=== PATIENT | female | born 1985 | race Caucasian/White ===

== ENCOUNTER 2021-07-16 21:26 | Outpatient (CLI) | payer SELFPAY ==
[2021-07-16 21:59] VITALS: BP 135/87
--- NOTE | 2021-07-17 07:53 | Ultrasound Report ---
ULTRASOUND OBSTETRIC COMPLETE INDICATION / CLINICAL INFORMATION: EFW, AUGUSTINE, PLACENTA. Clinical Gestational Age (GA) in weeks, days: 23 weeks 1 day TECHNIQUE: Transabdominal. COMPARISON: None available. FINDINGS: NUMBER: Single PRESENTATION: breech PLACENTA: posterofundal and free of the os. No evidence of placental abruption. MATERNAL ADNEXA: No significant abnormality. AMNIOTIC FLUID VOLUME: normal AMNIOTIC FLUID INDEX (AUGUSTINE) in cm (if measured): 11.4 ANATOMY: Examination is not tailored to evaluate detailed anatomy. MEASUREMENTS: - Biparietal Diameter = 5.0 cm = 21 weeks 1 - Head Circumference = 19.2 cm = 21 weeks 3 day - Abdominal Circumference = 17.5 cm = 22 weeks 3 days - Femur Length = 3.6 cm = 21 weeks 2 days - Estimated Weight (in grams, if calculated): 451 - Heart Rate (beats per minute): 149 ADDITIONAL FINDINGS: None. PERCENTILE ESTIMATED WEIGHT (if calculated): Not calculated AVERAGE ULTRASOUND AGE (AUA) in weeks, days = 21 weeks 4 days IMPRESSION: 1. Single intrauterine with AUA of 21 weeks 4 days, as detailed above. 2. No significant sonographic abnormality. Signer Name: Trell Gaspar MD Signed: 07/16/2021 11:43 PM Workstation Name: [id number]
== END 2021-07-16 23:00 | disposition still patient (30) ==
LOC: TRG 21:26 → APU 21:38 → TRG 23:00
PROVIDERS: ATTEND Obstetrics & Gynecology Gynecology
DX: O09.893 Supervision of other high risk pregnancies, third trimester (principal); Z3A.31 31 weeks gestation of pregnancy
CPT/HCPCS: 59025; 76816; 82962

== ENCOUNTER 2021-07-16 23:43 | Emergency (ER) | payer OTHER ==
[2021-07-17 04:49] VITALS: BP 146/98
== END 2021-07-17 04:49 | disposition home or self-care (01) ==
LOC: ED 23:43
DX: O9A.212 Injury, poisoning and certain other consequences of external causes complicating pregnancy, second trimester (principal); O26.892 Other specified pregnancy related conditions, second trimester; S50.312A Abrasion of left elbow, initial encounter; R51.9 Headache, unspecified; X58.XXXA Exposure to other specified factors, initial encounter; Y93.89 Activity, other specified; Y92.89 Other specified places as the place of occurrence of the external cause; Y99.8 Other external cause status; Z3A.22 22 weeks gestation of pregnancy
CPT/HCPCS: 59025; 76816; 82962; 99282